=== PATIENT | male | born 1955 | race Caucasian/White ===

== ENCOUNTER 2023-03-14 06:59 | Emergency (ER) | payer OTHER ==
[~2023-03-14] VITALS: Ht 177.8 cm; Wt 129.7 kg
--- NOTE | 2023-03-14 07:05 | NUR ---
Placed in room 08 . Placed on hospital monitor, blood pressure machine and pulse oximeter. To gown for exam. Side rails up.
[2023-03-14 07:06] VITALS: BP_SYST 144
--- NOTE | 2023-03-14 07:12 | NUR ---
PT CAME IN FROM HOME C/O WORSENING SINUS/NASAL CONGESTION SINCE WEDNESDAY. PT IS AMBULATORY, AAOX4, VSS
--- NOTE | 2023-03-14 07:22 | NUR ---
DR MAGANA AT BEDSIDE FOR EVALUATION
[2023-03-14] MEDS ORDERED: AMOX-423 PO (07:32)
[2023-03-14] MEDS ORDERED: FEXO-25 PO (07:32)
--- NOTE | 2023-03-14 07:38 | NUR ---
Patient given written and verbal discharge instructions and verbalizes understanding. ER MD discussed with patient the results and treatment provided. Patient in stable condition. ID arm band removed. Rx of RITA ALLERGY, AUGMENTIN given. Patient educated on pain management and to follow up with PMD. Pain Scale 0/10. Opportunity for questions provided and answered. Medication side effect fact sheet provided.
== END 2023-03-14 07:38 | disposition home or self-care (01) ==
LOC: SED 06:59
DX: J32.9 Chronic sinusitis, unspecified (principal); R09.81 Nasal congestion; R09.89 Other specified symptoms and signs involving the circulatory and respiratory systems; I11.0 Hypertensive heart disease with heart failure; I50.9 Heart failure, unspecified; E11.29 Type 2 diabetes mellitus with other diabetic kidney complication; N28.9 Disorder of kidney and ureter, unspecified; Z79.899 Other long term (current) drug therapy
CPT/HCPCS: 99283